=== PATIENT | male | born 1965 | race Hispanic/Latino ===

== ENCOUNTER 2021-01-19 11:04 | Emergency (ER) | payer SELFPAY ==
[~2021-01-19] VITALS: Ht 175.3 cm; Wt 86.2 kg
[2021-01-19] MEDS ORDERED: PENICILLIN G BENZATHINE LA 1.2 MU TBX IM ONE (12:00)
[2021-01-19] MEDS ORDERED: DEXAMETHASONE SOD PHOS 10 MG/1 ML VIAL IM ONE (12:00)
[2021-01-19] MEDS ORDERED: DEXAMETHASONE 4 MG TAB PO ONE (12:30)
[2021-01-19] MEDS ORDERED: ACETAMINOPHEN 325 MG TAB PO ONE (12:30)
[2021-01-19] MEDS ORDERED: IBUPROFEN 600 MG TAB ONE (12:31)
[2021-01-19] MEDS ORDERED: IBUPROFEN 600 MG TAB PO ONE (13:00)
== END 2021-01-19 12:25 | disposition home or self-care (01) ==
LOC: ER 11:25
DX: J02.0 Streptococcal pharyngitis (principal); R50.9 Fever, unspecified
CPT/HCPCS: 99283; J0561; J8540